=== PATIENT | male | born 1990 | race Hispanic/Latino ===

== ENCOUNTER 2019-02-28 02:14 | Emergency (ER) | payer OTHER, SELFPAY ==
[2019-02-28] MEDS ORDERED: Ketorolac Tromethamine 30 MG/ML VIAL ONE (03:04)
--- NOTE | 2019-02-28 08:30 | RAD ---
RIGHT SHOULDER 3 VIEWS: HISTORY: Pain. FINDINGS: Glenohumeral joint space is preserved. No fracture or dislocation. IMPRESSION: Unremarkable right shoulder 3 views. POS: [facility]
== END 2019-02-28 04:02 | disposition home or self-care (01) ==
LOC: ERS 02:14
DX: M25.511 Pain in right shoulder (principal)
CPT/HCPCS: 96372; J1885

== ENCOUNTER 2024-08-20 13:22 | Outpatient (CLI) | payer BC | END 2024-08-20 13:23 | disposition home or self-care (01) | LOC: BICRAD 13:22 | PROVIDERS: ATTEND Nurse Practitioner Family | DX: R05.1 Acute cough (principal) | CPT/HCPCS: 71046 ==